=== PATIENT | male | born 1980 | race Two or more races ===

== ENCOUNTER 2023-04-04 11:08 | Emergency (ER) | payer BC ==
[2023-04-04 11:46] LABS: BASOPHILS PERCENT AUTO 0.5 % (0.3-3.8); BLOOD UREA NITROGEN,BUN 12 mg/dL (7-18); CALCIUM 8.7 mg/dL (8.6-10.2); CARBON DIOXIDE,CO2 25 mmol/L (21-32); CHLORIDE,CL 105 mmol/L (100-110); EOSINOPHILS ABSOLUTE AUTO 0.1 x10-3/uL (0.0-0.6); EST CRCL DRUG DOSING (CG) 101.39 mL/min; ESTIMATED GFR 98 mL/min (>60); GLUCOSE RANDOM 112 mg/dL (80-116); HEMATOCRIT 43.4 % (38.3-50.1); HEMOGLOBIN 15.2 g/dL (12.9-17.7); LYMPHOCYTES ABSOLUTE AUTO 1.3 x10-3/uL (0.5-4.5); LYMPHOCYTES PERCENT AUTO 24.2 % (15.8-45.3); MEAN CORPUSCULAR HEMOGLOBIN 29.5 pg (27.0-33.3); MEAN CORPUSCULAR VOLUME 84.4 fL (80.8-98.7); MEAN PLATELET VOLUME 8.5 fL (6.7-11.0); MONOCYTES ABSOLUTE AUTO 0.5 x10-3/uL (0.0-1.2); MONOCYTES PERCENT AUTO 8.7 % (5.5-15.2); NEUTROPHILS ABSOLUTE AUTO 3.6 x10-3/uL (1.7-6.9); NEUTROPHILS PERCENT AUTO 64.6 % (40.3-71.8); PLATELET COUNT,PLT 219 x10(3)uL (117-477); POTASSIUM,K 3.9 mmol/L (3.5-5.3); RED BLOOD CELL COUNT 5.15 x10(6)uL (3.90-5.90); RED CELL DISTRIBUTION WIDTH 12.7 % (12.4-15.0); SODIUM,NA 140 mmol/L (135-145); WHITE BLOOD CELL COUNT,WBC 5.6 x10-3/uL (3.2-10.1)
[2023-04-04 11:52] LABS: A/G RATIO 1.4; ALANINE AMINOTRANSFERASE,ALT 32 U/L (12-36); ALKALINE PHOSPHATASE 90 IU/L (56-112); ASPARTATE AMNIOTRANSFERASE,AST 13 IU/L (5-25); BILIRUBIN TOTAL 0.4 mg/dL (0.1-1.3); PROTEIN TOTAL,TP 6.9 g/dL (6.0-8.0)
== END 2023-04-04 14:30 | disposition home or self-care (01) ==
LOC: FB.ED 11:08
DX: R07.89 Other chest pain (principal); R51.9 Headache, unspecified; R41.0 Disorientation, unspecified; F17.210 Nicotine dependence, cigarettes, uncomplicated; Z88.0 Allergy status to penicillin
CPT/HCPCS: 36415; 70450; 71045; 80053; 84484; 85025; 93005; 99285